=== PATIENT | male | born 1995 | race Asian ===

== ENCOUNTER 2018-03-23 01:34 | Emergency (ER) | payer BC, SELFPAY ==
[2018-03-23 01:38] VITALS: BP 120/99; PULSE 75; RESP 16; TEMP 36.7; O2SAT 99; BMI 19.9
[2018-03-23 01:41] VITALS: O2SAT 98
--- NOTE | 2018-03-23 02:27 | ED.VISSUMM ---
- ER Visit Summary Date of Service: 03/23/18 Chief Complaint: Sore throat History of Present Illness: The patient is a 22 M patient presents with the globus sensation to his throat this evening. States had tightness, and pain with palpation at his throat. No trouble swallowing. Been dealing with dyspnea for the past 8 months. Saw his clinic at the school 3 months ago states had a peak flow test that was normal and asthma was ruled out. There is no pulmonary function test. No tobacco history. Last travel was over 18 months ago. No PE history. No cough. No exertional dyspnea. No lightheaded symptoms. No current voice change. Denies any allergies. No other complaints. Physical Examination: General: Alert and oriented ?3, no acute distress HEENT: Normocephalic, atraumatic. Moist mucosa membranes. TMs normal bilaterally. No posterior pharyngeal erythema. 1+ symmetric tonsils. Uvula midline. No trismus. No stridor. Neck: supple, nontender. No cervical lymphadenopathy. Cardiovascular: Regular rate and rhythm, no murmurs Respiratory: Normal breath sounds, symmetric, no distress Abdomen: Soft, nontender, nondistended Extremities: Nontender, no edema, pulses intact ?4 Neuro: no focal neurological deficits. Test Results: [] Emergency Department Course and Treatment: Patient vitals stable, nontoxic. PERC criteria negative. Normal lung sounds. Complains of globus sensation with mild pain this evening. He denies any aspiration or eating before symptoms occurring. Discussed with patient we will give Decadron for symptoms. Offered to get a soft tissue x-ray, however he declines at this time concerning for financial cost. Discussed with patient symptoms and treatment would be the same therefore he will hold off at this time. Discussed with patient follow-up with his clinic for possible pulmonary function test as an outpatient for further evaluation of his dyspnea symptoms. Patient understands and agrees to plan. He will return if any worsening symptoms. Treatment Plan: [] Disposition: Discharge Impression: 1. Acute pharyngitis This note was generated with [employer] dictation software. It may contain incorrect words, spelling, and punctuation that were not noted in review of the chart prior to signing ED Disposition - Plan for ED Patient: Disposition: Home or Assisted Living Chief Complaint: Shortness of Breath Diagnosis: Acute pharyngitis Instructions: Self-Care for Sore Throats Referrals: Care Physician,No Primary [Primary Care Provider] - Additional Instructions: Follow-up with your clinic at the school for possible pulmonary function test as an outpatient.
[2018-03-23 02:36] VITALS: BP 120/99; PULSE 75; RESP 16; O2SAT 99
== END 2018-03-23 02:36 | disposition home or self-care (01) ==
PROVIDERS: Emergency Provider Emergency Medicine
DX: J02.9 Acute pharyngitis, unspecified (principal)
CPT/HCPCS: 99283